=== PATIENT | male | born 1955 | race Caucasian/White ===

== ENCOUNTER 2023-08-19 15:12 | Outpatient (CLI) | payer MEDICARE, BC | END 2023-08-19 15:13 | disposition home or self-care (01) | LOC: BURRAD 15:12 | PROVIDERS: ATTEND Family Medicine | DX: M25.512 Pain in left shoulder (principal); G89.29 Other chronic pain; M75.122 Complete rotator cuff tear or rupture of left shoulder, not specified as traumatic ==